=== PATIENT | male | born 1990 | race Caucasian/White ===

== ENCOUNTER 2016-08-21 16:27 | Emergency (ER) | payer BC, MEDICAID ==
[2016-08-21 16:50] VITALS: BP 119/73
--- NOTE | 2016-08-21 17:41 | UC ---
Rashida Beltran Rebecca, scribed for Dorie Henson MD on 08/21/16 at 1703 . Abdominal Pain Male HPI - HPI Summary HPI Summary: Pt is a 26 y/o M accompanied by his partner, Dorie, who presents to [facility] c/o RLQ pain. Pain has been intermittent for the past year, present every few days. Patient decided to be evaluated by [facility] today as the sx were worse today than ever before. Episodes of pain last approximately 45 minutes. When pain is present, it is characterized as sharp/throbbing with radiation to the back and right testicle. On triage, pain was 5/10, though pain is now extremely mild (1/ 10). no analgesia taken. Reports that when pain is present, he occasionally will not be able to get comfortable though pain does not wake him up from sleep. Sx aggravated by deep breaths and sometimes alleviated by BM and urination, otherwise alleviated by spontaneous resolution. Has not taken anything to treat the pain today, though he typically takes ibuprofen. Additionally c/o nausea and chills, when pain is present. Denies diaphoresis and hematuria. Confirms he typically takes in plenty of water and food throughout the day. 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 No PMHx kidney stones. FHx kidney stones (brother and father). SHx current smoker - [address] Granda. Pt was last seen for a yearly physical approximately 7 months ago during which he did not mention abd pain. Notes he was working on brakes today when the pain began, though he was not in an abnormal or straining body position. Medications reviewed at this visit. - History of Current Complaint Chief Complaint: UCAbdominalPain Stated Complaint: ABD PAIN Time Seen by Provider: 08/21/16 16:56 Hx Obtained From: Patient Onset/Duration: Sudden Onset - when occurs - lasts minutes to 40 min, Lasting Weeks - 1 year, Resolved Timing: Intermittent Episodes Lasting: - 45 minutes Severity Initially: Moderate - 5/10 Severity Currently: Mild Pain Intensity: 1 Pain Scale Used: 0-10 Numeric Location: Discrete At: RLQ Radiates: Yes Radiates to: Back, Flank, Inguinal - R testicle Character: Sharp, Other - Throbbing Aggravating Factor(s):: Deep Breaths Alleviating Factor(s): Spontaneous Resolution Associated Signs And Symptoms: Positive: Nausea, Other - Chills; Denies hematuria. Negative: Diaphoresis - Allergies/Home Medications Allergies/Adverse Reactions: Allergies Allergy/AdvReac Type Severity Reaction Status Date / Time No Known Allergies Allergy Verified 08/20/13 12:44 Home Medications: Home Medications NK [No Home Medications Reported] 08/21/16 [History Confirmed 08/21/16] PMH/Surg Hx/FS Hx/Imm Hx Previously Healthy: Yes Endocrine History Of: Denies: Diabetes, Thyroid Disease Cardiovascular History Of: Denies: Cardiac Disorders, Hypertension Respiratory History Of: Denies: COPD, Asthma GI/ History Of: Denies: Ulcer, Kidney Stones - Surgical History Surgical History: None - Family History Known Family History: Positive: Other - No FHx kidney stones - Social History Occupation: Employed Full-time - [employer] Alcohol Use: Rare Substance Use Type: None Smoking Status (MU): Heavy Every Day Tobacco Smoker Type: Cigarettes Amount Used/How Often: 1 ppd Length of Time of Smoking/Using Tobacco: 9 years Have You Smoked in the Last Year: Yes Household Exposure Type: Cigarettes - Immunization History Most Recent Tetanus Shot: 4-5 years ago Review of Systems Constitutional: Chills - when pain is present Skin: Negative Eyes: Negative ENT: Negative Respiratory: Negative Cardiovascular: Negative Gastrointestinal: Abdominal Pain - sharp RLQ, Other - Nausea (when pain is present), radiates to right testical and right back intermittently Genitourinary: Negative Motor: Negative Neurovascular: Negative Musculoskeletal: Negative Neurological: Negative Psychological: Negative All Other Systems Reviewed And Are Negative: Yes Physical Exam Triage Information Reviewed: Yes Appearance: Well-Appearing, No Pain Distress Vital Signs: Initial Vital Signs Temp 98.8 F 08/21/16 16:46 Pulse 61 08/21/16 16:46 Resp 18 08/21/16 16:46 BP 119/73 08/21/16 16:46 Pulse Ox 99 08/21/16 16:46 Vital Signs Reviewed: Yes Eye Exam: Normal Eyes: Positive: Conjunctiva Clear ENT Exam: Normal ENT: Positive: Pharynx normal, TMs normal Dental Exam: Normal Neck exam: Normal Neck: Positive: Supple, Nontender Respiratory Exam: Normal Respiratory: Positive: Chest non-tender, Lungs clear Cardiovascular Exam: Normal Cardiovascular: Positive: RRR Abdominal Exam: Normal Abdomen Description: Positive: Nontender, No Organomegaly, Soft, Other: - + BS, soft, no guarding, no rebound No CVA. Negative: Distended, Guarding Bowel Sounds: Positive: Present Musculoskeletal Exam: Normal Neurological Exam: Normal Psychological Exam: Normal Skin Exam: Normal Re-Evaluation - Re-Evaluation First Eval Re-Evaluation Time: 17:45 Change: Unchanged Comment: Still has no pain. I had long discussion with pt discussion option of transfer to ED for further evaluation vs go home and follow-up with PCP. After discussion, patient has elected to be D/C to home. Agrees that if pain returns, vomiting or other concerns will be evaluated by the ED. States that he will schedule an appointment with his PCP. Pt comfotable and in agreement with plan Abd Pain Male Course/Dx - Course Course Of Treatment: PT presents with 1 year intermittent, colicky right lower quadrant, right flank and right testicular pain. 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 Pt's exam in non concerning and non tender. pt in no distress. pt's brother with h/o renal colic. Will check urine. If + will d/w pt eval for renal stones today or f/u with pcp. Pt unsure wants to go to the ED today - pt in not in distress, stable vitals signs with non concerning exam - this is not unreasonable f.u with pcp - will await urine and further discuss - Differential Dx/Clinical Impression Provider Diagnoses: abdominal pain. flank pain Discharge - Discharge Plan Condition: Stable Disposition: HOME Patient Education Materials: Flank Pain (ED), Abdominal Pain (ED) Referrals: Angela Granda MD [Primary Care Provider] - Additional Instructions: - Stay well hydrated. Drink plenty of non-alcoholic, non-caffinated beverages. - Okay to alternate ibuprofen (Advil, motrin) and Tylenol every 3 hours for pain. Take with food. Do NOT take for more than 4-5 days - As discussed in the emergency department today - it is strongly recommended you schedule a follow-up appointment with your primary doctor - call on Tuesday for an appointment. if you pain returns, you develop vomiting, fevers or any other concerns - contact 911 or go to the emergency department for further evaluation - blood work and radiology imaging The documentation as recorded by the Rashida dunaway Rebecca accurately reflects the service I personally performed and the decisions made by me, Dorie Henson MD.
== END 2016-08-21 18:00 | disposition home or self-care (01) ==
LOC: UCEAST 16:27
DX: R10.31 Right lower quadrant pain (principal); N50.811 Right testicular pain
CPT/HCPCS: 81003; 99211; G0463